=== PATIENT | male | born 1950 | race Caucasian/White ===

== ENCOUNTER 2016-10-25 20:18 | Emergency (ER) | payer SELFPAY ==
[~2016-10-25] VITALS: Ht 167.6 cm; Wt 100.0 kg
[2016-10-25] MEDS ORDERED: TAMS0.4C32 PO (20:25)
[2016-10-25 21:28] LABS: APPEARANCE,URINE TURBID (CLEAR); GLUCOSE, URINE (UA) NEGATIVE (NEGATIVE); KETONES,URINE TRACE mg/dL (NEGATIVE); LEUKOCYTE ESTERASE ,URINE LARGE (NEGATIVE); OCCULT BLOOD,URINE LARGE (NEGATIVE); PROTEIN,URINE SEE CONFIRM (NEGATIVE)
[2016-10-25 22:04] LABS: ADD UA MICROSCOPIC YES
[2016-10-25 22:05] LABS: AMORPHOUS SEDIMENT,UR Few /LPF (None Seen); RBC,URINE 51-100 /HPF (0-2); SQUAMOUS EPITHELIAL CELL,UR Few /LPF (None Seen); SULFOSALICYLIC ACID,URINE 2+ (Negative); WBC,URINE 51-100 /HPF (0-5)
[2016-10-25] MEDS ORDERED: CIPROFLOXACIN HCL 250 MG TABLET PO ONE (22:15)
[2016-10-25 22:53] VITALS: BP 135/73
== END 2016-10-25 23:13 | disposition home or self-care (01) ==
LOC: EMS 20:22
DX: Z46.6 Encounter for fitting and adjustment of urinary device (principal); N39.0 Urinary tract infection, site not specified
CPT/HCPCS: 51702; 87086; 99284

== ENCOUNTER 2016-10-29 17:00 | Emergency (ER) | payer OTHER ==
[~2016-10-29] VITALS: Ht 170.2 cm; Wt 77.7 kg
[~2016-10-29 17:00] MED LIST: TAMS0.4C32 PO
[2016-10-29 19:05] LABS: APPEARANCE,URINE BLOODY (CLEAR); GLUCOSE, URINE (UA) NEGATIVE (NEGATIVE); OCCULT BLOOD,URINE LARGE (NEGATIVE); PROTEIN,URINE SEE CONFIRM (NEGATIVE)
[2016-10-29 19:06] LABS: KETONES,URINE SMALL mg/dL (NEGATIVE); LEUKOCYTE ESTERASE ,URINE LARGE (NEGATIVE)
[2016-10-29 19:08] LABS: RBC,URINE Full Field /HPF (0-2)
[2016-10-29 19:09] LABS: AMORPHOUS SEDIMENT,UR Few /LPF (None Seen); COARSE GRANULAR CASTS,URINE 0-2 /LPF (None Seen); SQUAMOUS EPITHELIAL CELL,UR Rare /LPF (None Seen); WBC,URINE 51-100 /HPF (0-5)
[2016-10-29 19:10] LABS: SULFOSALICYLIC ACID,URINE 4+ (Negative)
[2016-10-29] MEDS ORDERED: CefTRIAXone 1 GM/DEXTROSE 50 ML IV ONE (21:15)
[2016-10-29] MEDS ORDERED: LEVOFLOXACIN 500 MG/D5% WATER 100 ML IV ONE (21:15)
[2016-10-29] MEDS ORDERED: KETOROLAC TROMETHAMINE 30 MG/ML VIAL IVP ONE (21:15)
[2016-10-29 22:06] VITALS: BP 127/74
== END 2016-10-29 23:15 | disposition home or self-care (01) ==
LOC: EMS 17:01
DX: N39.0 Urinary tract infection, site not specified (principal)
CPT/HCPCS: 81001; 81002; 87077; 87086; 96365; 96368; 96375; 99284; J0696; J1885; J1956

== ENCOUNTER 2016-11-01 22:35 | Emergency (ER) | payer OTHER ==
[~2016-11-01] VITALS: Ht 172.7 cm; Wt 77.3 kg
[2016-11-02 00:15] LABS: APPEARANCE,URINE TURBID (CLEAR)
[2016-11-02 00:16] LABS: GLUCOSE, URINE (UA) 100 mg/dL (NEGATIVE); KETONES,URINE TRACE mg/dL (NEGATIVE); LEUKOCYTE ESTERASE ,URINE LARGE (NEGATIVE); OCCULT BLOOD,URINE LARGE (NEGATIVE); PROTEIN,URINE SEE CONFIRM (NEGATIVE)
[2016-11-02 00:26] LABS: SULFOSALICYLIC ACID,URINE 2+ (Negative)
[2016-11-02 00:27] LABS: RBC,URINE >100 /HPF (0-2)
[2016-11-02 00:28] LABS: WBC,URINE Full Field /HPF (0-5)
[2016-11-02] MEDS ORDERED: LIDOCAINE HCL 2% 5 ML JELLY TP ONE (00:45)
[2016-11-02] MEDS ORDERED: LIDOCAINE HCL/PF 1% 2 ML VIAL IM ONE (01:30)
[2016-11-02] MEDS ORDERED: CefTRIAXone SODIUM 1 GM/VIAL IM ONE (01:30)
[2016-11-02 01:48] VITALS: BP 141/77
== END 2016-11-02 01:52 | disposition home or self-care (01) ==
LOC: EMS 22:38
DX: N39.0 Urinary tract infection, site not specified (principal)
CPT/HCPCS: 81001; 81002; 87077; 87086; 87186; 96372; 99284; J0696; J3490

== ENCOUNTER 2016-11-04 04:54 | Emergency (ER) | payer OTHER ==
[~2016-11-04] VITALS: Ht 172.7 cm; Wt 77.3 kg
[2016-11-04 07:06] LABS: APPEARANCE,URINE CLOUDY (CLEAR); GLUCOSE, URINE (UA) NEGATIVE (NEGATIVE); KETONES,URINE 15 mg/dL (NEGATIVE); LEUKOCYTE ESTERASE ,URINE MODERATE (NEGATIVE); OCCULT BLOOD,URINE LARGE (NEGATIVE); PROTEIN,URINE SEE CONFIRM (NEGATIVE)
[2016-11-04 07:07] LABS: ADD UA MICROSCOPIC YES
[2016-11-04 07:09] LABS: SULFOSALICYLIC ACID,URINE 3+ (Negative)
[2016-11-04 07:11] LABS: RBC,URINE Full Field /HPF (0-2); WBC,URINE 26-50 /HPF (0-5)
[2016-11-04] MEDS ORDERED: CIPROFLOXACIN HCL 250 MG TABLET PO ONE (07:30)
[2016-11-04 11:04] VITALS: BP 127/72
== END 2016-11-04 11:08 | disposition home or self-care (01) ==
LOC: EMS 04:55
DX: T83.091A Other mechanical complication of indwelling urethral catheter, initial encounter (principal); N39.0 Urinary tract infection, site not specified; R31.9 Hematuria, unspecified
CPT/HCPCS: 51702; 87086; 99284